=== PATIENT | female | born 1960 | race Caucasian/White ===

== ENCOUNTER 2016-07-12 15:23 | Emergency (ER) | payer OTHER ==
[~2016-07-12] VITALS: Ht 160 cm; Wt 84.8 kg
[2016-07-12 15:55] VITALS: BP 167/98
--- NOTE | 2016-07-12 15:57 | PHYS DOC ---
Past Medical History Past Medical History: Hypothyroid Past Surgical History: Other Additional Past Surgical Histo: back sx w/instrumentation Additional Information: nonsmoker Alcohol Use: Occasionally Drug Use: None Adult General Chief Complaint Chief Complaint: SKIN PROBLEM HPI HPI Patient is a 56 year old female who presents with right middle finger pain and swelling for 3 days. She states that she had a hangnail before the pain and swelling started. She denies any fevers. Her PCP is Dr. Bennett. Review of Systems Review of Systems Constitutional: Denies fever or chills. [] Musculoskeletal: Denies back pain or joint pain. Reports right middle finger pain and swelling. Integument: Denies rash or skin lesions. Reports right middle finger paronychia. Neurologic: Denies focal weakness or sensory changes. [] Current Medications Current Medications Current Medications Medications (Trade) Dose Ordered Sig/Kaitlin Start Time Stop Time Status Last Admin Dose Admin Bupivacaine HCl (Marcaine 0.5%) 50 ml 1X ONCE 07/12/16 16:00 07/12/16 16:01 DC 07/12/16 15:59 50 ML Allergies Allergies Allergies Coded Allergies Type Severity Reaction Last Updated Verified No Known Drug Allergies 07/12/16 No Physical Exam Physical Exam Constitutional: Well developed, well nourished, no acute distress, non-toxic appearance. [] HENT: Normocephalic, atraumatic, oropharynx moist. [] Eyes: PERRLA, EOMI, conjunctiva normal, no discharge. [] Skin: Warm, dry, no erythema, no rash. Right middle finger paronychia without cellulitis or lymphangitis. Extremities: Distal right middle finger tenderness, ROM intact, mild edema. Less than 2 second capillary refill. Light touch sensation intact distally. Neurologic: Alert and oriented X 3, normal motor function, normal sensory function, no focal deficits noted. [] Psychologic: Affect normal, judgement normal, mood normal. [] Current Patient Data Vital Signs Vital Signs Date Time Temp Pulse Resp B/P Pulse Ox O2 Delivery O2 Flow Rate FiO2 07/12/16 15:55 167/98 07/12/16 15:46 98.3 83 16 98 Room Air 98.3 EKG EKG [] Radiology/Procedures Radiology/Procedures [] Course & Med Decision Making Course & Med Decision Making Pertinent Labs and Imaging studies reviewed. (See chart for details) Patient presents with paronychia to the right middle finger. The wound was anesthetized using digital block using 0.5% bupivicaine. The wound was cleaned using chlorhexidine scrub. A #11 blade was used to incise the wound with moderate amount of purulent drainage from the wound. A dressing was applied. The patient tolerated the procedure well. Dragon Disclaimer Dragon Disclaimer This electronic medical record was generated, in whole or in part, using a voice recognition dictation system. Departure Departure Impression: Primary Impression: Paronychia of finger Disposition: 01 HOME, SELF-CARE Condition: IMPROVED Referrals: FRANCISCO BENNETT MD (PCP) Patient Instructions: Paronychia, [id number] Additional Instructions: You were seen today for an infection around your fingernail. The wound was opened to drain the infection. Please keep the wound covered with antibiotic ointment and a bandage. Please complete all the prescribed antibiotics, even if your finger is improving. Return to emergency department if you have worsening of the wound or the wound is not improving after 2-3 days on the antibiotics, or other new or concerning symptoms. Scripts Sulfamethoxazole/Trimethoprim (Bactrim Ds Tablet)1 Each Tablet1 Tab PO BID #14 TAB Prov:JOE FANG 07/12/16 Problem Qualifiers Primary Impression: Paronychia of finger Laterality: right Qualified Code: L03.011 - Cellulitis of right finger JOE FANG Jul 12, 2016 15:57
[2016-07-12] MEDS ORDERED: BUPIVACAINE 0.5% 50 ML VIAL. IJ ONE (16:00)
[2016-07-12] MEDS ORDERED: SULF1TAB24 PO (17:03)
== END 2016-07-12 17:17 | disposition home or self-care (01) ==
LOC: ER 15:23
DX: L03.011 Cellulitis of right finger (principal); E03.9 Hypothyroidism, unspecified
CPT/HCPCS: 10060; 99283; J3490

== ENCOUNTER → 2016-10-21 | Outpatient (CLI) | payer OTHER ==
[~2016-10-21] MED LIST: SULF1TAB24 PO
[2016-10-21 08:02] LABS: ALBUMIN 4.2 g/dL (3.4-5.0); ALBUMIN/GLOBULIN RATIO 1.1 (1.0-1.7); CALCIUM 9.4 mg/dL (8.5-10.1); CREATININE 0.7 mg/dL (0.6-1.0); GFR 85.9; POTASSIUM 4.1 mmol/L (3.5-5.1); TOTAL BILIRUBIN 0.7 mg/dL (0.2-1.0)
[2016-10-21 08:04] LABS: CHOLESTEROL/HDL RATIO 2.4
[2016-10-21 08:25] LABS: FREE T4 1.05 ng/dL (0.76-1.46)
== END | disposition home or self-care (01) ==
LOC: LAB 06:33
PROVIDERS: ATTEND Family Medicine
DX: E03.9 Hypothyroidism, unspecified (principal)
CPT/HCPCS: 36415; 80053; 80061; 84439; 84443

== ENCOUNTER → 2017-04-19 | Outpatient (CLI) | payer OTHER ==
[2017-04-19 08:21] LABS: ALBUMIN 4.2 g/dL (3.4-5.0); ALBUMIN/GLOBULIN RATIO 1.2 (1.0-1.7); CALCIUM 9.6 mg/dL (8.5-10.1); CREATININE 0.8 mg/dL (0.6-1.0); GFR 73.7; POTASSIUM 3.9 mmol/L (3.5-5.1); TOTAL BILIRUBIN 0.6 mg/dL (0.2-1.0); TOTAL PROTEIN 7.8 g/dL (6.4-8.2)
[2017-04-19 08:24] LABS: CHOLESTEROL/HDL RATIO 2.8
[2017-04-19 08:34] LABS: FREE T4 1.18 ng/dL (0.76-1.46)
== END | disposition home or self-care (01) ==
LOC: LAB 06:10
PROVIDERS: ATTEND Family Medicine
DX: E78.5 Hyperlipidemia, unspecified (principal); E03.9 Hypothyroidism, unspecified; Z78.0 Asymptomatic menopausal state
CPT/HCPCS: 36415; 80053; 80061; 82306; 84439; 84443

== ENCOUNTER → 2017-04-21 | Outpatient (CLI) | payer OTHER ==
[2017-04-21 11:03] LABS: BILIRUBIN,URINE NEGATIVE (NEG); GLUCOSE,URINE NEGATIVE (NEG); NITRITE,URINE NEGATIVE (NEG); PROTEIN,URINE NEGATIVE (NEG-TRACE); UROBILINOGEN,URINE 0.2 mg/dL (0.2 mg/dL)
[2017-04-21 11:20] LABS: BACTERIA,URINE 0 /HPF (0-FEW); RBC,URINE 0 /HPF (0-2); SQUAMOUS EPITHELIAL CELL,UR FEW /LPF; WBC,URINE >40 /HPF (0-4)
== END | disposition home or self-care (01) ==
LOC: LAB 09:56
PROVIDERS: ATTEND Family Medicine
DX: R30.0 Dysuria (principal)
CPT/HCPCS: 81001; 87086

== ENCOUNTER 2017-09-19 07:04 | Emergency (ER) | payer OTHER | END 2017-09-19 07:20 | disposition home or self-care (01) | LOC: ER 07:04 | DX: H10.89 Other conjunctivitis (principal); E03.9 Hypothyroidism, unspecified | CPT/HCPCS: 99283 ==

== ENCOUNTER → 2017-10-25 | Outpatient (CLI) | payer OTHER ==
[2017-10-25 08:21] LABS: ALBUMIN 4.2 g/dL (3.4-5.0); ALBUMIN/GLOBULIN RATIO 1.1 (1.0-1.7); ALK PHOS 69 U/L (46-116); ALT (SGPT) 30 U/L (14-59); ANION GAP 8 (6-14); AST (SGOT) 25 U/L (15-37); BLOOD UREA NITROGEN 17 mg/dL (7-20); BUN/CREATININE RATIO 24 (6-20); CALCIUM 9.2 mg/dL (8.5-10.1); CARBON DIOXIDE 31 mmol/L (21-32); CHLORIDE 104 mmol/L (98-107); CHOLESTEROL 204 mg/dL (0-200); CREATININE 0.7 mg/dL (0.6-1.0); GFR 85.6; GLUCOSE 100 mg/dL (70-99); HDLC 92 mg/dL (40-60); LDLC 99 mg/dL (0-100); NON-HDL CHOLESTEROL 112 mg/dL (0-129); SODIUM 143 mmol/L (136-145); TOTAL BILIRUBIN 0.7 mg/dL (0.2-1.0); TRIGLYCERIDES 65 mg/dL (0-150); VLDLC 13 mg/dL (0-40)
[2017-10-25 08:22] LABS: CHOLESTEROL/HDL RATIO 2.2
[2017-10-25 08:33] LABS: FREE T4 0.95 ng/dL (0.76-1.46)
[2017-10-25 08:33] LABS: THYROID STIM HORMONE (TSH) 6.314 uIU/mL (0.358-3.74)
== END | disposition home or self-care (01) ==
LOC: LAB 05:42
DX: E55.9 Vitamin D deficiency, unspecified (principal); E03.9 Hypothyroidism, unspecified; E78.5 Hyperlipidemia, unspecified
CPT/HCPCS: 36415; 80053; 80061; 82306; 84439; 84443

== ENCOUNTER → 2017-11-17 | Outpatient (CLI) | payer OTHER | END | disposition home or self-care (01) | LOC: KCIC MRI 13:37 | DX: M48.02 Spinal stenosis, cervical region (principal); M12.88 Other specific arthropathies, not elsewhere classified, other specified site; M25.78 Osteophyte, vertebrae; M50.21 Other cervical disc displacement, high cervical region | CPT/HCPCS: 72141 ==

== ENCOUNTER → 2018-03-23 | Outpatient (CLI) | payer OTHER ==
[2017-09-19 07:07] VITALS: BP 141/86
[~2018-03-23] MED LIST changes: +TOBR5DRO6 OD
--- NOTE | 2018-03-24 08:41 | RAD ---
DATE: 03/23/2018 EXAM: MAMMO YESSICA SCREENING BILATERAL HISTORY: Breast implants, routine screening COMPARISON: 02/16/2016 This study was interpreted with the benefit of Computerized Aided Detection (CAD). Breast Density: HETERO The breast parenchyma is heterogenously dense, which could reduce sensitivity of mammography. Breast parenchyma level C. FINDINGS: Routine and implant exclusion 2-D views were obtained of both breasts. 3-D tomosynthesis imaging was then performed utilizing the implant exclusion technique. No new or enlarging breast densities are seen. The breast implants are unchanged. No suspicious microcalcifications have developed. IMPRESSION: Stable mammograms without evidence of malignancy. BI-RADS CATEGORY: 2 BENIGN FINDING(S) RECOMMENDED FOLLOW-UP: 12M 12 MONTH FOLLOW-UP PQRS compliance statement: Patient information was entered into a reminder system with a target due date for the next mammogram. Mammography is a sensitive method for finding small breast cancers, but it does not detect them all and is not a substitute for careful clinical examination. A negative mammogram does not negate a clinically suspicious finding and should not result in delay in biopsying a clinically suspicious abnormality. "Our facility is accredited by the [employer] Mammography Program."
== END | disposition home or self-care (01) ==
LOC: MAMMO 08:32
PROVIDERS: ATTEND Family Medicine
DX: Z12.31 Encounter for screening mammogram for malignant neoplasm of breast (principal)
CPT/HCPCS: 77063; 77067

== ENCOUNTER → 2018-04-18 | Outpatient (CLI) | payer OTHER ==
[2017-09-19 07:07] VITALS: BP 141/86
[2018-04-18 08:06] LABS: HEMATOCRIT 41.4 % (36.0-47.0); HEMOGLOBIN 14.3 g/dL (12.0-15.5); RED BLOOD COUNT 4.53 x10^6/uL (3.50-5.40); RED CELL DISTRIBUTION WIDTH 12.7 % (11.5-14.5); WHITE BLOOD COUNT 6.8 x10^3/uL (4.0-11.0)
[2018-04-18 08:57] LABS: FREE T4 1.2 ng/dL (0.76-1.46); THYROID STIM HORMONE (TSH) 0.298 uIU/mL (0.358-3.74)
[2018-04-18 09:00] LABS: ALBUMIN 3.9 g/dL (3.4-5.0); CALCIUM 9.4 mg/dL (8.5-10.1); CREATININE 0.8 mg/dL (0.6-1.0); GFR 73.4; POTASSIUM 3.8 mmol/L (3.5-5.1); TOTAL BILIRUBIN 0.6 mg/dL (0.2-1.0); TOTAL PROTEIN 7.9 g/dL (6.4-8.2)
[2018-04-18 09:01] LABS: CHOLESTEROL/HDL RATIO 2.5
[2018-04-18 20:11] LABS: HEMOGLOBIN A1C 5.4 % (4.8-5.6)
== END | disposition home or self-care (01) ==
LOC: LAB 05:38
PROVIDERS: ATTEND Family Medicine
DX: R73.09 Other abnormal glucose (principal); E78.5 Hyperlipidemia, unspecified; E03.9 Hypothyroidism, unspecified
CPT/HCPCS: 36415; 80053; 80061; 83036; 84439; 84443; 85027

== ENCOUNTER → 2018-10-24 | Outpatient (CLI) | payer OTHER ==
[2017-09-19 07:07] VITALS: BP 141/86
[2018-10-24 08:28] LABS: ALBUMIN 4.1 g/dL (3.4-5.0); ALBUMIN/GLOBULIN RATIO 1.1 (1.0-1.7); CALCIUM 9.4 mg/dL (8.5-10.1); CREATININE 0.7 mg/dL (0.6-1.0); GFR 85.4; POTASSIUM 4.4 mmol/L (3.5-5.1); TOTAL BILIRUBIN 0.7 mg/dL (0.2-1.0); TOTAL PROTEIN 7.8 g/dL (6.4-8.2)
[2018-10-24 08:31] LABS: CHOLESTEROL/HDL RATIO 2.2
[2018-10-24 08:40] LABS: FREE T4 1.42 ng/dL (0.76-1.46); THYROID STIM HORMONE (TSH) 0.104 uIU/mL (0.358-3.74)
[2018-10-25 00:10] LABS: HEMOGLOBIN A1C 5.6 % (4.8-5.6)
== END | disposition home or self-care (01) ==
LOC: LAB 06:52
PROVIDERS: ATTEND Family Medicine
DX: R73.09 Other abnormal glucose (principal); E03.9 Hypothyroidism, unspecified; E78.5 Hyperlipidemia, unspecified; E55.9 Vitamin D deficiency, unspecified
CPT/HCPCS: 36415; 80053; 80061; 82306; 83036; 84439; 84443

== ENCOUNTER → 2019-02-09 | Outpatient (CLI) | payer OTHER ==
[2017-09-19 07:07] VITALS: BP 141/86
[2019-02-09 08:26] LABS: FREE T4 1.44 ng/dL (0.76-1.46); THYROID STIM HORMONE (TSH) 0.032 uIU/mL (0.358-3.74)
== END | disposition home or self-care (01) ==
LOC: LAB 07:16
PROVIDERS: ATTEND Family Medicine
DX: E03.9 Hypothyroidism, unspecified (principal)
CPT/HCPCS: 36415; 84439; 84443

== ENCOUNTER → 2019-04-24 | Outpatient (CLI) | payer OTHER ==
[2017-09-19 07:07] VITALS: BP 141/86
[2019-04-24 07:50] LABS: ALBUMIN 3.9 g/dL (3.4-5.0); ALBUMIN/GLOBULIN RATIO 1.1 (1.0-1.7); GFR 56.6; POTASSIUM 3.7 mmol/L (3.5-5.1); TOTAL BILIRUBIN 0.6 mg/dL (0.2-1.0); TOTAL PROTEIN 7.4 g/dL (6.4-8.2)
[2019-04-24 07:56] LABS: CALCIUM 8.8 mg/dL (8.5-10.1)
[2019-04-24 08:00] LABS: FREE T4 1.25 ng/dL (0.76-1.46); THYROID STIM HORMONE (TSH) 0.087 uIU/mL (0.358-3.74)
[2019-04-24 08:02] LABS: CHOLESTEROL/HDL RATIO 2.7
[2019-04-25 00:07] LABS: HEMOGLOBIN A1C 5.4 % (4.8-5.6)
== END | disposition home or self-care (01) ==
LOC: LAB 07:15
PROVIDERS: ATTEND Family Medicine
DX: E55.9 Vitamin D deficiency, unspecified (principal); R73.09 Other abnormal glucose; E03.9 Hypothyroidism, unspecified; E78.5 Hyperlipidemia, unspecified
CPT/HCPCS: 36415; 80053; 80061; 82306; 83036; 84439; 84443

== ENCOUNTER → 2019-10-04 | Outpatient (CLI) | payer OTHER ==
[2017-09-19 07:07] VITALS: BP 141/86
[2019-10-04 11:39] LABS: BILIRUBIN,URINE NEGATIVE (NEG); CLARITY,URINE CLEAR; COLOR,URINE AMBER; NITRITE,URINE POSITIVE (NEG); PH,URINE 7.5 (<5.0-8.0); PROTEIN,URINE NEGATIVE (NEG-TRACE)
[2019-10-04 11:55] LABS: BACTERIA,URINE MANY /HPF (0-FEW); RBC,URINE RARE /HPF (0-2); SQUAMOUS EPITHELIAL CELL,UR OCC /LPF; WBC,URINE >40 /HPF (0-4)
== END ==
LOC: LAB 11:04
PROVIDERS: ATTEND Internal Medicine Critical Care Medicine
DX: N39.0 Urinary tract infection, site not specified (principal)
CPT/HCPCS: 81001; 87086

== ENCOUNTER → 2019-11-05 | Outpatient (CLI) | payer OTHER ==
[2017-09-19 07:07] VITALS: BP 141/86
[2019-11-05 07:32] LABS: HEMATOCRIT 37.4 % (36.0-47.0); HEMOGLOBIN 12.9 g/dL (12.0-15.5); RED BLOOD COUNT 4.06 x10^6/uL (3.50-5.40); RED CELL DISTRIBUTION WIDTH 13.3 % (11.5-14.5); WHITE BLOOD COUNT 6.5 x10^3/uL (4.0-11.0)
[2019-11-05 07:56] LABS: ALBUMIN 3.7 g/dL (3.4-5.0); ALBUMIN/GLOBULIN RATIO 1.2 (1.0-1.7); CALCIUM 9.1 mg/dL (8.5-10.1); CREATININE 0.9 mg/dL (0.6-1.0); GFR 63.7; POTASSIUM 3.7 mmol/L (3.5-5.1); TOTAL BILIRUBIN 0.5 mg/dL (0.2-1.0); TOTAL PROTEIN 6.9 g/dL (6.4-8.2)
[2019-11-05 08:06] LABS: FREE T4 1.1 ng/dL (0.76-1.46); THYROID STIM HORMONE (TSH) 0.124 uIU/mL (0.358-3.74)
[2019-11-06 00:08] LABS: HEMOGLOBIN A1C 5.2 % (4.8-5.6)
== END | disposition home or self-care (01) ==
LOC: LAB 07:09
PROVIDERS: ATTEND Family Medicine
DX: E03.9 Hypothyroidism, unspecified (principal); E74.39 Other disorders of intestinal carbohydrate absorption; E78.5 Hyperlipidemia, unspecified
CPT/HCPCS: 36415; 80053; 80061; 83036; 84439; 84443; 85027

== ENCOUNTER → 2020-01-14 | Outpatient (CLI) | payer OTHER ==
[2017-09-19 07:07] VITALS: BP 141/86
--- NOTE | 2020-01-15 15:45 | RAD ---
DATE: 01/14/2020 1:33 PM EXAM: MAMMO YESSICA SCREENING BILATERAL HISTORY: Screening COMPARISON: 03/23/2018, 02/16/2016 Bilateral CC and MLO views of the breasts were performed. Bilateral breast tomosynthesis was performed in CC and MLO projections. This study was interpreted with the benefit of Computerized Aided Detection (CAD). FINDINGS: Breast Density: SCATTERED The breast parenchyma shows scattered fibroglandular densities. Breast parenchyma level B Bilateral subpectoral silicone implants are redemonstrated. No suspicious masses, microcalcifications or architectural distortion is present to suggest malignancy in either breast. The visualized axillae are unremarkable. IMPRESSION: No mammographic evidence of malignancy. BI-RADS CATEGORY: 1 NEGATIVE RECOMMENDED FOLLOW-UP: 12M 12 MONTH FOLLOW-UP Annual screening mammography is recommended, unless clinically indicated sooner based on symptoms or change in physical exam. PQRS compliance statement: Patient information was entered into a reminder system with a target due date for the next mammogram. Mammography is a sensitive method for finding small breast cancers, but it does not detect them all and is not a substitute for careful clinical examination. A negative mammogram does not negate a clinically suspicious finding and should not result in delay in biopsying a clinically suspicious abnormality. "Our facility is accredited by the [employer] Mammography [employer]."
== END | disposition home or self-care (01) ==
LOC: MAMMO 13:32
PROVIDERS: ATTEND Family Medicine
DX: Z12.31 Encounter for screening mammogram for malignant neoplasm of breast (principal)
CPT/HCPCS: 77063; 77067